=== PATIENT | male | born 1995 | race Hispanic/Latino ===

== ENCOUNTER 2017-11-10 22:18 | Emergency (ER) | payer BC, OTHER ==
[2017-11-10] MEDS ORDERED: FLUORESCEIN SODIUM 0.6 MG/WRAP ONE (23:44)
[2017-11-10] MEDS ORDERED: TETRACAINE HCL 0.5% 2ML OPTH ONE (23:44)
[2017-11-10] MEDS ORDERED: NEO/BAC/POLY/HC OPTH OINT ONE (23:48)
[2017-11-10] MEDS ORDERED: NEOMYCIN/BAC/POLY OPTH 3.5GM ONE (23:51)
[2017-11-10] MEDS ORDERED: HYDROCODONE/APAP 7.5/325 MG TAB ONE (23:56)
--- NOTE | 2017-11-10 23:57 | ER ---
Nurse's Notes [facility] Name: Delbert Chakraborty Age: 21 yrs Sex: Male : 1995 Arrival Date: 11/10/2017 Time: 22:22 Bed 27 Private MD: Diagnosis: Ocular pain, right eye Presentation: 11/10 22:36 Presenting complaint: Patient states: that he was grinding metal at work and got fc something in his right eye off his hard hat. Went to occupational health and they washed his eye out x 3 and put yellow dye in it to look around. They told him there was nothing in it but the pain is getting worse. Transition of care: patient was not received from another setting of care. Mechanism of Injury: Grinding. The patient denies any loss of vision. Onset of symptoms was November 10, 2017. Initial Sepsis Screen: Does the patient meet any 2 criteria? No. Patient's initial sepsis screen is negative. Does the patient have a suspected source of infection? No. Patient's initial sepsis screen is negative. Care prior to arrival: None. 22:36 Method Of Arrival: Ambulatory 22:36 Acuity: MARISOL 3 fc Triage Assessment: 11/11 00:02 General: Appears uncomfortable, well groomed, Behavior is calm, cooperative, mb3 appropriate for age. Pain: Complains of pain in right eye. EENT: Sclera/Cornea are reddened in outer aspect of conjuctiva of right eye, iris of right eye and inner aspect of conjuctiva of right eye. Neuro: No deficits noted. Cardiovascular: No deficits noted. Respiratory: No deficits noted. GI: No signs and/or symptoms were reported involving the gastrointestinal system. Historical: - Allergies: 11/10 22:38 No Known Allergies; fc - Home Meds: 22:38 None [Active]; fc - PMHx: 22:38 None; fc - PSHx: 22:38 None; fc - Immunization history:: Last tetanus immunization: up to date. - Social history:: Smoking status: Patient uses tobacco products, denies chronic smoking, but will smoke occasionally, Patient/guardian denies using alcohol, street drugs. - Family history:: not pertinent. Screenin:38 Abuse screen: Denies threats or abuse. Nutritional screening: No deficits noted. fc Tuberculosis screening: No symptoms or risk factors identified. Fall Risk None identified. Assessment: 11/11 00:04 EENT: Eyes are tearing on outer aspect of conjuctiva of right eye, iris of right eye mb3 and inner aspect of conjuctiva of right eye. Vital Signs: 11/10 22:36 Weight 58.97 kg (R); Height 5 ft. 7 in. (170.18 cm) (R); Pain 8/10; fc 22:39 BP 109 / 63 LA Sitting (auto/reg); Pulse 61 LA; Resp 20 S; Temp 98.3(O); Pulse Ox 98% rg2 on R/A; 11/11 00:01 BP 110 / 59; Pulse 61; Resp 18; Pulse Ox 98% on R/A; mb3 11/10 22:36 Body Mass Index 20.36 (58.97 kg, 170.18 cm) ED Course: 11/10 22:22 Patient arrived in ED. am2 22:36 Arm band placed on Patient placed in an exam room, on a stretcher. 22:37 Triage completed. 22:38 Yaniv Curiel, RN is Primary Nurse. mb3 22:38 Patient has correct armband on for positive identification. Bed in low position. Adult fc w/ patient. 22:38 No provider procedures requiring assistance completed. 23:00 Teofilo Lassiter MD is Attending Physician. [facility] 11/11 00:06 Patient did not have IV access during this emergency room visit. mb3 Administered Medications: 11/10 23:45 Drug: Tetracaine Drops 0.5 % 1 drops {Note: per Dr Lassiter.} Route: Ophthalmic; Site: fc right eye; 23:45 Drug: Fluorescein Strip 1 strip {Note: per Dr Lassiter.} Route: Ophthalmic; Site: right fc eye; 23:57 Drug: Wzgjqhwt-Fychpgrss-Stjysxptix 2 drops Route: Ophthalmic; Site: right eye; mb3 23:57 Drug: [place] (7.5 mg-325 mg) 1 tabs Route: PO; mb3 11/11 00:06 Follow up: Response: No adverse reaction mb3 Outcome: 11/10 23:56 Discharge ordered by . [facility] 11/11 00:05 Discharged to home ambulatory, with friend. mb3 Condition: stable Discharge instructions given to patient, Instructed on discharge instructions, follow up and referral plans. medication usage, Demonstrated understanding of instructions, follow-up care, medications, Prescriptions given X 2. 00:06 Patient left the ED. mb3 Signatures: Christianne Perez2 Teofilo Lassiter MD MD cha Chretien, Felicia, RN RN fc Moreno, Amanda am2 Barnett, Mark, RN RN mb3
--- NOTE | 2017-11-10 23:57 | EDPHYS ---
Physician Documentation [facility] Name: Delbert Chakraborty Age: 21 yrs Sex: Male : 1995 Arrival Date: 11/10/2017 Time: 22:22 Bed 27 Private MD: ED Physician Teofilo Lassiter HPI: 11/10 23:53 The patient is experiencing foreign body sensation, The patient sustained grinding. evelin Onset: The symptoms/episode began/occurred just prior to arrival. Duration: the symptoms are continuous. Aggravated by blinking, closing eye, opening eye. Associated signs and symptoms: Pertinent negatives: None. Patient does not utilize any form of vision correction. Severity of symptoms: At their worst the symptoms were mild in the emergency department the symptoms are unchanged. The patient has not experienced similar symptoms in the past. Historical: - Allergies: 22:38 No Known Allergies; fc - Home Meds: 22:38 None [Active]; fc - PMHx: 22:38 None; fc - PSHx: 22:38 None; fc - Immunization history:: Last tetanus immunization: up to date. - Social history:: Smoking status: Patient uses tobacco products, denies chronic smoking, but will smoke occasionally, Patient/guardian denies using alcohol, street drugs. - Family history:: not pertinent. ROS: 23:53 Constitutional: Negative for fever, chills, and weight loss, ENT: Negative for injury, evelin pain, and discharge, Neck: Negative for injury, pain, and swelling, Cardiovascular: Negative for chest pain, palpitations, and edema, Respiratory: Negative for shortness of breath, cough, wheezing, and pleuritic chest pain, Abdomen/GI: Negative for abdominal pain, nausea, vomiting, diarrhea, and constipation, Back: Negative for injury and pain, : Negative for injury, bleeding, discharge, and swelling, MS/Extremity: Negative for injury and deformity, Skin: Negative for injury, rash, and discoloration, Neuro: Negative for headache, weakness, numbness, tingling, and seizure, Psych: Negative for depression, anxiety, suicide ideation, homicidal ideation, and hallucinations, Allergy/Immunology: Negative for hives, rash, and allergies, Endocrine: Negative for neck swelling, polydipsia, polyuria, polyphagia, and marked weight changes, Hematologic/Lymphatic: Negative for swollen nodes, abnormal bleeding, and unusual bruising. 23:53 Eyes: Positive for foreign body sensation, pain, photophobia, redness, of the outer aspect of conjuctiva of right eye, iris of right eye and inner aspect of conjuctiva of right eye. Exam: 23:53 Constitutional: This is a well developed, well nourished patient who is awake, alert, evelin and in no acute distress. Head/Face: Normocephalic, atraumatic. ENT: Nares patent. No nasal discharge, no septal abnormalities noted. Tympanic membranes are normal and external auditory canals are clear. Oropharynx with no redness, swelling, or masses, exudates, or evidence of obstruction, uvula midline. Mucous membranes moist. Neck: Trachea midline, no thyromegaly or masses palpated, and no cervical lymphadenopathy. Supple, full range of motion without nuchal rigidity, or vertebral point tenderness. No Meningismus. Chest/axilla: Normal chest wall appearance and motion. Nontender with no deformity. No lesions are appreciated. Cardiovascular: Regular rate and rhythm with a normal S1 and S2. No gallops, murmurs, or rubs. Normal PMI, no JVD. No pulse deficits. Respiratory: Lungs have equal breath sounds bilaterally, clear to auscultation and percussion. No rales, rhonchi or wheezes noted. No increased work of breathing, no retractions or nasal flaring. Abdomen/GI: Soft, non-tender, with normal bowel sounds. No distension or tympany. No guarding or rebound. No evidence of tenderness throughout. Back: No spinal tenderness. No costovertebral tenderness. Full range of motion. Male : Normal genitalia with no discharge or lesions. Skin: Warm, dry with normal turgor. Normal color with no rashes, no lesions, and no evidence of cellulitis. MS/ Extremity: Pulses equal, no cyanosis. Neurovascular intact. Full, normal range of motion. Neuro: Awake and alert, GCS 15, oriented to person, place, time, and situation. Cranial nerves II-XII grossly intact. Motor strength 5/5 in all extremities. Sensory grossly intact. Cerebellar exam normal. Normal gait. Psych: Awake, alert, with orientation to person, place and time. Behavior, mood, and affect are within normal limits. Vital Signs: 22:36 Weight 58.97 kg (R); Height 5 ft. 7 in. (170.18 cm) (R); Pain 8/10; fc 22:39 BP 109 / 63 LA Sitting (auto/reg); Pulse 61 LA; Resp 20 S; Temp 98.3(O); Pulse Ox 98% rg2 on R/A; 11/11 00:01 BP 110 / 59; Pulse 61; Resp 18; Pulse Ox 98% on R/A; mb3 11/10 22:36 Body Mass Index 20.36 (58.97 kg, 170.18 cm) fc MDM: 11/10 23:00 Patient medically screened. [facility] Administered Medications: 23:45 Drug: Tetracaine Drops 0.5 % 1 drops {Note: per Dr Lassiter.} Route: Ophthalmic; Site: fc right eye; 23:45 Drug: Fluorescein Strip 1 strip {Note: per Dr Lassiter.} Route: Ophthalmic; Site: right fc eye; 23:57 Drug: Rcygxdyq-Czzadcoom-Fpeyfceyhx 2 drops Route: Ophthalmic; Site: right eye; 3 23:57 Drug: [place] (7.5 mg-325 mg) 1 tabs Route: PO; mb3 11/11 00:06 Follow up: Response: No adverse reaction mb3 Disposition: 11/10/17 23:56 Discharged to Home. Impression: Ocular pain, right eye. - Condition is Stable. - Prescriptions for Tobrex 0.3 % Ophthalmic ointment - apply 1 inch ribbon by OPHTHALMIC route 2-3 times daily; 3.5 gram. Tylenol- Codeine #3 300-30 mg Oral Tablet - take 2 tablet by ORAL route every 6 hours As needed; 30 tablet. - Medication Reconciliation Form, Thank You Letter, Antibiotic Education, Prescription Opioid Use form. - Follow up: Private Physician; When: 2 - 3 days; Reason: Recheck today's complaints, Continuance of care, Re-evaluation by your physician. - Problem is new. - Symptoms have improved. Signatures: Teofiol Lassiter MD MD cha Chretien, Felicia RN RN Yaniv Curiel RN RN mb3 Corrections: (The following items were deleted from the chart) 00:06 11/10 23:56 11/10/2017 23:56 Discharged to Home. Impression: Ocular pain, right eye. mb3 Condition is Stable. Forms are Medication Reconciliation Form, Thank You Letter, Antibiotic Education, Prescription Opioid Use. Follow up: Private Physician; When: 2 - 3 days; Reason: Recheck today's complaints, Continuance of care, Re-evaluation by your physician. Problem is new. Symptoms have improved. evelin
== END 2017-11-11 00:06 | disposition home or self-care (01) ==
LOC: ER 22:18
DX: H57.11 Ocular pain, right eye (principal); F17.220 Nicotine dependence, chewing tobacco, uncomplicated
CPT/HCPCS: 99283